=== PATIENT | male | born 1950 | race Caucasian/White ===

== ENCOUNTER 2024-08-29 09:05 | Day surgery (SDC) | payer MEDICARE ==
[~2024-08-29] VITALS: Ht 175.3 cm; Wt 97.0 kg
[~2024-08-29 09:05] MED LIST: Lactated Ringer's 1,000 ML IV ONE; propofoL 50 ML IV ONE
[2024-08-29] MEDS ORDERED: JARDIANCE25 MG (09:18)
[2024-08-29] MEDS ORDERED: METF500 (09:18)
[2024-08-29] MEDS ORDERED: Lovastatin20 MG (09:18)
[2024-08-29] MEDS ORDERED: SILD50TA (09:19)
[2024-08-29] MEDS ORDERED: OMEP20ER (09:19)
[2024-08-29] MEDS ORDERED: Lactated Ringer's 1,000 ML IV ONE (09:57)
--- NOTE | 2024-08-29 10:35 | NUR ---
08/29/24 1035 Charity Laurent 2ML NS INJECTED INTO SIGMOID POLYP FOR POLYPECTOMY.
== END 2024-08-29 11:04 | disposition home or self-care (01) ==
LOC: ORSCSDS 09:05
PROVIDERS: Surgery
PROC: 0DBP8ZX Excision of Rectum, Via Natural or Artificial Opening Endoscopic, Diagnostic (ICD-10-PCS; principal; 2024-08-29 10:45)
PROC: 0DBN8ZX Excision of Sigmoid Colon, Via Natural or Artificial Opening Endoscopic, Diagnostic (ICD-10-PCS; principal; 2024-08-29 10:45)
PROC: 0DBK8ZX Excision of Ascending Colon, Via Natural or Artificial Opening Endoscopic, Diagnostic (ICD-10-PCS; principal; 2024-08-29 10:45)
DX: Z12.11 Encounter for screening for malignant neoplasm of colon (principal); Z86.0100 Personal history of colon polyps, unspecified; D12.2 Benign neoplasm of ascending colon; D12.5 Benign neoplasm of sigmoid colon; D12.8 Benign neoplasm of rectum; K64.8 Other hemorrhoids; E78.5 Hyperlipidemia, unspecified; Z90.49 Acquired absence of other specified parts of digestive tract; E11.9 Type 2 diabetes mellitus without complications; Z79.84 Long term (current) use of oral hypoglycemic drugs; Z79.899 Other long term (current) drug therapy
CPT/HCPCS: 82947; 88305; J2704; J7120